=== PATIENT | male | born 1960 | race Two or more races ===

== ENCOUNTER 2021-09-08 22:06 | Emergency (ER) | payer MEDICAID, OTHER ==
[~2021-09-08] VITALS: Ht 160 cm; Wt 99.8 kg
[2021-09-08] MEDS ORDERED: METOCLOPRAMIDE HCL 5MG/ml INJ 2ml VIAL IV ONE (23:15)
[2021-09-08] MEDS ORDERED: SODIUM CHLORIDE 0.9% 2,000 ML IV ONE (23:15)
[2021-09-08] MEDS ORDERED: ACETAMINOPHEN 325 MG TAB PO ONE (23:15)
[2021-09-09] MEDS ORDERED: LABETALOL HCL 5 MG/ML 4ML SYRINGE IV ONE (02:30)
[2021-09-09] MEDS ORDERED: LABETALOL HCL 200 MG TAB PO ONE (03:45)
[2021-09-09] MEDS ORDERED: LABE100T4 PO (04:24)
[2021-09-09 04:49] VITALS: BP 132/93
== END 2021-09-09 04:51 | disposition home or self-care (01) ==
LOC: ER 22:08
DX: R03.0 Elevated blood-pressure reading, without diagnosis of hypertension (principal)
CPT/HCPCS: 96374; 96375; 99285; J2765; J3490